=== PATIENT | male | born 1950 | race Caucasian/White ===

== ENCOUNTER 2017-12-29 17:42 | Emergency (ER) | payer MEDICARE, SELFPAY ==
[2017-12-29 17:45] VITALS: BP 157/71; PULSE 106; RESP 15; TEMP 36.7; O2SAT 95; BMI 26.9
--- NOTE | 2017-12-29 18:00 | NURSING ---
NO LW OR POA
--- NOTE | 2017-12-29 18:11 | ED.DCSUM_ITS ---
- ER Visit Summary Date of Service: 12/29/17 Chief Complaint: Decreased appetite History of Present Illness: The patient is a 67 M here with good friend concerns for decreased appetite. Patient diagnosed with stage IV lung cancer recurrent 3 weeks ago[address] Follow[address] by Dr. Berry. Patient had palliative care come to the house 2 days ago side paperwork. Saw a nurse. They state he is not ready for hospice. There is no current care for the patient. He lives alone. Had a fall 2 weeks ago. States he has trouble with activities of daily living currently. States his nausea at times is controlled with Zofran. He states he just does not want to eat. No abdominal pain. No urinary symptoms. No fevers. Physical Examination: General: Alert and oriented ?3, no acute distress HEENT: Normocephalic, atraumatic. Dry mucosa membranes Neck: supple, nontender. Cardiovascular: Regular rate and rhythm, no murmurs. Midline chest scar. Respiratory: Normal breath sounds, symmetric, no distress Abdomen: Soft, nontender, nondistended Extremities: Nontender, no edema, pulses intact ?4 Neuro: no focal neurological deficits. Test Results: CBC normal, BMP potassium 2.8, creatinine 0.82, calcium 9.1 Emergency Department Course and Treatment: Patient dry on exam, given IV fluids. Check electrolytes noted potassium 2.8. He is able to orally take the powder. Improvement of symptoms. He will be given potassium for a week. Patient with a stage IV lung cancer states would like more care at home, is unclear why palliative stated he would not qualify for hospice care. I did speak with hospice nurse, Elizabeth, states they can send somebody back out to the house tomorrow to reevaluate. Patient does state he would like hospice care. He is ambulating department with a walker with no difficulties. He is concerned due to his disc complaint weakness and requiring ambulance transport here. He will be discharged with his good friend to take home and will be seen by hospice tomorrow. Treatment Plan: [] Disposition: Discharge Impression: 1. Weakness 2. Hypokalemia 3. Stage IV lung cancer This note was generated with [employer] software. It may contain incorrect words, spelling, and punctuation that were not noted in review of the chart prior to signing ED Disposition - Plan for ED Patient: Disposition: Home or Assisted Living Chief Complaint: Weakness Diagnosis: Weakness, Hypokalemia, Stage IV lung cancer Prescriptions: Potassium Chloride [Klor-Con] 20 meq PO DAILY #7 packet Referrals: Andrew Cullen DO [Primary Care Provider] - 3-5 Days Additional Instructions: Hospice nurse will come out to the house tomorrow for reevaluation.
[2017-12-29] MEDS: 0.9% Normal Saline 1,000 ML 1000 ML IV (18:24)
[2017-12-29 18:33] LABS: Absolute Lymphocyte Count 0.51 X10^3/ul (0.83-4.51); Absolute Neutrophil Count 6.3 X10^3/uL (2.0-7.7); Basophil# 0.02 X10^3/uL; Basophil% 0.3 % (0-1); Eosinophil# 0.14 X10^3/uL; Eosinophils% 1.8 % (0-5); Hemoglobin 14.2 g/dl (13.0-16.5); Lymphocyte # 0.51 X10^3/ul (4.0); Lymphocyte % 6.7 % (19-41); Mean Corp Hgb Conc 32.3 g/gl (32-36); Mean Corpuscular Hgb 26.5 pg (27.0-32.0); Mean Corpuscular Volume 82.2 fL (80-94); Mean Platelet Vol. 9.8 fl (6.2-12.0); Monocyte# 0.64 X10^3/uL; Monocyte% 8.4 % (0-10); Neutrophil # 6.31 X10^3/uL (2.7-7.7); Neutrophil % 82.7 % (47-70); Platelet Count 207 K/mm3 (150-450); RBC Distribution Width CV 15.1 % (11.6-14.6); Red Blood Count 5.35 M/mm3 (4.6-6.2); White Blood Count 7.6 K/mm3 (4.4-11.0)
[2017-12-29 18:36] LABS: Differential Indicated SCAN CRITERIA MET; POSITIVE COUNT NO; POSITIVE DIFFERENTIAL YES; POSITIVE MORPHOLOGY NO
[2017-12-29 18:49] LABS: Anion Gap 7 (5-15); BUN 11 mg/dL (7-18); BUN/Creat Ratio 13.4 RATIO (10-20); Calcium,Total 9.1 mg/dL (8.5-10.1); Chloride 95 mmol/L (98-107); Creatinine, Serum 0.82 mg/dL (0.70-1.30); EST Glomerular Filtration Rate 99 mL/min (>60); Est Glom Filt Rate - Afr Amer 120 mL/min (>60); Estimated Creatinine Clearance 87.42 ml/min; Glucose 218 mg/dL (74-106); Potassium 2.8 mmol/L (3.5-5.1); Sodium Level 136 mmol/L (136-145)
[2017-12-29 18:58] LABS: Differential Comment SCANNED
[2017-12-29 20:23] VITALS: BP 145/70; PULSE 92; RESP 14; O2SAT 99
== END 2017-12-29 20:24 | disposition home or self-care (01) ==
PROVIDERS: Emergency Provider Emergency Medicine; Family Provider Family Medicine; PCP Family Medicine
DX: R53.1 Weakness (principal); E87.6 Hypokalemia; C34.90 Malignant neoplasm of unspecified part of unspecified bronchus or lung; Z60.2 Problems related to living alone; E11.9 Type 2 diabetes mellitus without complications; I10 Essential (primary) hypertension; E78.00 Pure hypercholesterolemia, unspecified; I25.10 Atherosclerotic heart disease of native coronary artery without angina pectoris; I25.2 Old myocardial infarction; Z72.0 Tobacco use; Z95.1 Presence of aortocoronary bypass graft
CPT/HCPCS: 80048; 85025; 96360; 99285; J7030; A4216